=== PATIENT | male | born 1990 | race African-American/Black ===

== ENCOUNTER 2018-03-01 14:41 | Emergency (ER) | payer OTHER ==
[2018-03-01] MEDS ORDERED: IBUPROFEN 600 MG TAB PO STA (14:49)
[2018-03-01] MEDS ORDERED: ACETAMINOPHEN TAB 500 MG TAB PO STA (14:49)
--- NOTE | 2018-03-01 14:52 | ED ---
General Adult HPI - General Chief complaint: Upper Respiratory Infection Stated complaint: dizziness/achy Time Seen by Provider: 03/01/18 14:42 Source: patient, RN notes reviewed Mode of arrival: ambulatory Limitations: no limitations - History of Present Illness Initial comments: This is a 28-year-old male who presents emergency Department complaining of body aches all over for 2 days. Patient states he believes he has a fever. Patient states she also had a cough but he denies any shortness of breath. Patient also denies any sputum production. Patient denies a sore throat. Patient denies any ear pain. Patient has any nausea vomiting diarrhea. Patient denies any chest pain or abdomen pain. Patient is a smoker. - Related Data Home Medications Medication Instructions Recorded Confirmed No Known Home Medications 03/01/18 03/01/18 Allergies Allergy/AdvReac Type Severity Reaction Status Date / Time Penicillins Allergy Unknown Verified 03/01/18 15:28 Review of Systems ROS Statement: Those systems with pertinent positive or pertinent negative responses have been documented in the HPI. ROS Other: All systems not noted in ROS Statement are negative. Past Medical History Past Medical History: No Reported History History of Any Multi-Drug Resistant Organisms: None Reported Past Surgical History: Hernia Repair Past Psychological History: No Psychological Hx Reported Smoking Status: Current every day smoker Past Alcohol Use History: Occasional Past Drug Use History: Marijuana General Exam - General Exam Comments Initial Comments: GENERAL: Patient is well-developed and well-nourished. Patient is nontoxic and well- hydrated and is in mild distress. ENT: Neck is soft and supple. No significant lymphadenopathy is noted. Oropharynx is clear. Moist mucous membranes. Neck has full range of motion without eliciting any pain. EYES: The sclera were anicteric and conjunctiva were pink and moist. Extraocular movements were intact and pupils were equal round and reactive to light. Eyelids were unremarkable. PULMONARY: Unlabored respirations. Good breath sounds bilaterally. No audible rales rhonchi or wheezing was noted. CARDIOVASCULAR: There is a regular rate and rhythm without any murmurs gallops or rubs. ABDOMEN: Soft and nontender with normal bowel sounds. SKIN: Skin is clear with no lesions or rashes and otherwise unremarkable. NEUROLOGIC: Patient is alert and oriented x3. Cranial nerves II through XII are grossly intact. Motor and sensory are also intact. Normal speech, volume and content. Symmetrical smile. MUSCULOSKELETAL: Normal extremities with adequate strength and full range of motion. LYMPHATICS: No significant lymphadenopathy is noted PSYCHIATRIC: Normal psychiatric evaluation. Limitations: no limitations Course Vital Signs 03/01/18 03/01/18 03/01/18 14:42 14:49 15:05 Temperature 101.4 F H 103.4 F H 100.3 F H Pulse Rate 111 H Respiratory 20 Rate Blood Pressure 137/91 O2 Sat by Pulse 100 Oximetry 03/01/18 15:12 Temperature Pulse Rate Respiratory 20 Rate Blood Pressure O2 Sat by Pulse Oximetry Medical Decision Making - Medical Decision Making Chest x-ray shows no acute abnormality. Influenza was negative. Patient received Motrin and Tylenol in the emergency department after that he was feeling considerably better. - Lab Data Lab Results 03/01/18 Range/Units 15:03 Influenza Type A RNA Not Detected (Not Detectd) Influenza Type B (PCR) Not Detected (Not Detectd) Disposition Clinical Impression: Viral infection Disposition: HOME SELF-CARE Condition: Good Instructions: Viral Syndrome (ED) Is patient prescribed a controlled substance at d/c from ED?: No Referrals: None,Stated [Primary Care Provider] - 1-2 days Time of Disposition: 16:51
--- NOTE | 2018-03-01 16:48 | XR ---
EXAMINATION TYPE: XR chest 2V DATE OF EXAM: 03/01/2018 COMPARISON: NONE HISTORY: Difficulty breathing, fever and bodyaches TECHNIQUE: Frontal and lateral views of the chest are obtained. FINDINGS: There is no focal air space opacity, pleural effusion, or pneumothorax seen. The cardiac silhouette size is within normal limits. There is a mild spinal curvature. The osseous structures ar e intact. IMPRESSION: No acute cardiopulmonary process.
[2018-03-01 17:07] VITALS: BP 141/88; PULSE 79; RESP 18; TEMP 100.9
== END 2018-03-01 17:07 | disposition home or self-care (01) ==
LOC: EDSEX → EC 14:41 → MERGE 14:41 → EC 17:07
DX: B34.9 Viral infection, unspecified (principal); F17.200 Nicotine dependence, unspecified, uncomplicated; Z88.0 Allergy status to penicillin
CPT/HCPCS: 71046; 87502; 99284

== ENCOUNTER 2018-04-18 04:57 | Emergency (ER) | payer OTHER ==
[2018-04-18 05:14] VITALS: RESP 18
[2018-04-18] MEDS ORDERED: SODIUM CHLORIDE 0.9% 1,000 ML IV ONE (05:25)
[2018-04-18] MEDS ORDERED: MORPHINE SULFATE 4 MG/ML SYRINGE IVP STA (05:25)
--- NOTE | 2018-04-18 05:27 | ED ---
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 Patient reports she has a history of a right-sided inguinal hernia which required surgical repair when he lived in [place]. Patient reports that today he was lifting heavy bags of laundry, a bat got stuck and he states that he had put his left leg up to give him more worse pulling backwards on a bag. He reports that he believes he pulled his groin and as been experiencing left- sided groin pain since that time. He describes it as a pressure that radiates from his testicles into his abdomen. He reports identical to previous hernia. He reports that this is been persistent for about half an hour to an hour he has noticed a bulge in his pubic area of similar to previous hernia surgery came to the ER for evaluation. Advised had a noticed any hernia like symptoms prior to this event. - Related Data Home Medications Medication Instructions Recorded Confirmed Ibuprofen [Motrin Ib] 400 mg PO Q6H PRN 04/18/18 04/18/18 Allergies Allergy/AdvReac Type Severity Reaction Status Date / Time Penicillins Allergy Unknown Verified 04/18/18 07:23 Review of Systems ROS Statement: Those systems with pertinent positive or pertinent negative responses have been documented in the HPI. ROS Other: All systems not noted in ROS Statement are negative. Past Medical History Past Medical History: No Reported History History of Any Multi-Drug Resistant Organisms: None Reported Past Surgical History: Hernia Repair Past Psychological History: No Psychological Hx Reported Smoking Status: Current every day smoker Past Alcohol Use History: Occasional Past Drug Use History: Marijuana General Exam - General Exam Comments Initial Comments: Physical Exam GENERAL: Patient is well-developed and well-nourished. Patient is nontoxic and well- hydrated and is in no distress. HENT: Normocephalic, Atraumatic. EYES: PERRL, EOMI PULMONARY: Unlabored respirations. No audible rales rhonchi or wheezing was noted. CARDIOVASCULAR: There is a regular rate and rhythm without any murmurs gallops or rubs. ABDOMEN: Soft and nontender with normal bowel sounds. SKIN: Skin is clear with no lesions or rashes and otherwise unremarkable. : Circumcised No Testicular swelling Swelling of the left groin, no definitive inguinal hernia NEUROLOGIC: Patient is alert and oriented x3. Moving all extremities spontaneously MUSCULOSKELETAL: Normal extremities with adequate strength and full range of motion. No lower extremity swelling or edema. No calf tenderness. PSYCHIATRIC: Normal psychiatric evaluation. Limitations: no limitations Limitations: no limitations Course Vital Signs 04/18/18 05:09 Temperature 98.0 F Pulse Rate 64 Respiratory 18 Rate Blood Pressure 149/92 O2 Sat by Pulse 100 Oximetry Medical Decision Making - Medical Decision Making The patient was seen and evaluated, history is obtained from the patient The and imaging were ordered Labs unremarkable CT with no acute findings - I suspect patient's pain and swelling are secondary to a muscle sprain or strain, these results were discussed with patient who expresses relief that there is no hernia identified. Agrees with plan for rest , ice, anti-inflammatories. I will refer the patient to a surgeon for outpatient evaluation if he does have persistent symptoms. Patient is agreeable to this. Patient be provided a work note so that he can take the next 24 hours to rest. All questions pertaining care were answered best my ability return parameters were discussed patient was discharged home in stable condition. - Lab Data Result diagrams: 04/18/18 05:36 04/18/18 05:36 Lab Results 04/18/18 04/18/18 04/18/18 Range/Units 05:36 05:36 05:36 WBC 3.8 (3.8-10.6) k/uL RBC 5.13 (4.30-5.90) m/uL Hgb 15.2 (13.0-17.5) gm/dL Hct 45.4 (39.0-53.0) % MCV 88.4 (80.0-100.0) fL MCH 29.6 (25.0-35.0) pg MCHC 33.5 (31.0-37.0) g/dL RDW 13.2 (11.5-15.5) % Plt Count 301 (150-450) k/uL Neutrophils % 48 % Lymphocytes % 38 % Monocytes % 6 % Eosinophils % 3 % Basophils % 1 % Neutrophils # 1.8 (1.3-7.7) k/uL Lymphocytes # 1.5 (1.0-4.8) k/uL Monocytes # 0.2 (0-1.0) k/uL Eosinophils # 0.1 (0-0.7) k/uL Basophils # 0.1 (0-0.2) k/uL Sodium 137 (137-145) mmol/L Potassium 5.2 H (3.5-5.1) mmol/L Chloride 106 (98-107) mmol/L Carbon Dioxide 25 (22-30) mmol/L Anion Gap 6 mmol/L BUN 14 (9-20) mg/dL Creatinine 0.98 (0.66-1.25) mg/dL Est GFR (CKD-EPI)AfAm >90 (>60 ml/min/1.73 sqM) Est GFR (CKD-EPI)NonAf >90 (>60 ml/min/1.73 sqM) Glucose 97 (74-99) mg/dL Plasma Lactic Acid Carl 1.4 (0.7-2.0) mmol/L Calcium 9.2 (8.4-10.2) mg/dL Total Bilirubin 0.4 (0.2-1.3) mg/dL AST 28 (17-59) U/L ALT 26 (21-72) U/L Alkaline Phosphatase 44 (38-126) U/L Total Protein 7.0 (6.3-8.2) g/dL Albumin 3.9 (3.5-5.0) g/dL Disposition Clinical Impression: Strain of left inguinal muscle Disposition: HOME SELF-CARE Condition: Good Instructions: Muscle Strain (ED), Groin Strain (ED) Is patient prescribed a controlled substance at d/c from ED?: No Referrals: None,Stated [Primary Care Provider] - 1-2 days Sreekanth Ramon MD [STAFF PHYSICIAN] - 1-2 days
[2018-04-18 05:54] LABS: Basophils # (A) 0.1 k/uL (0-0.2); Basophils % (A) 1 %; Eosinophils # (A) 0.1 k/uL (0-0.7); Eosinophils % (A) 3 %; HCT 45.4 % (39.0-53.0); HGB 15.2 gm/dL (13.0-17.5); Lymphocytes # (A) 1.5 k/uL (1.0-4.8); Lymphocytes % (A) 38 %; MCH 29.6 pg (25.0-35.0); MCHC 33.5 g/dL (31.0-37.0); MCV 88.4 fL (80.0-100.0); Mean Platelet Volume 6.9; Monocytes # (A) 0.2 k/uL (0-1.0); Monocytes % (A) 6 %; Neutrophils # (A) 1.8 k/uL (1.3-7.7); Neutrophils % (A) 48 %; Platelet Count 301 k/uL (150-450); RBC 5.13 m/uL (4.30-5.90); RDW 13.2 % (11.5-15.5); WBC 3.8 k/uL (3.8-10.6)
[2018-04-18 06:04] LABS: ALT 26 U/L (21-72); AST 28 U/L (17-59); Albumin 3.9 g/dL (3.5-5.0); Alkaline Phosphatase 44 U/L (38-126); Anion Gap 6 mmol/L; Blood Urea Nitrogen 14 mg/dL (9-20); Calcium 9.2 mg/dL (8.4-10.2); Carbon Dioxide 25 mmol/L (22-30); Chloride 106 mmol/L (98-107); Glucose 97 mg/dL (74-99); Potassium 5.2 mmol/L (3.5-5.1); Sodium 137 mmol/L (137-145); Total Bilirubin 0.4 mg/dL (0.2-1.3)
--- NOTE | 2018-04-18 06:53 | CT ---
EXAMINATION TYPE: CT abdomen pelvis w con DATE OF EXAM: 04/18/2018 COMPARISON: None HISTORY: Lt inguinal hernia left groin pain. Previous hernia repair. CT DLP: 548.8 mGycm Automated exposure control for dose reduction was used. TECHNIQUE: Helical acquisition of images was performed from the lung bases through the pelvis. CONTRAST: Performed without Oral Contrast and with IV Contrast, patient injected with 100 mL of Isovue 300. FINDINGS: Lung bases are clear. There is no pleural effusion. Heart size is normal. There is no pericardial eff usion. Liver shows no focal defect. Gallbladder appears normal. Bile ducts are not dilated. Spleen and pancr eas appear normal. Stomach appears normal. There is no adrenal mass. Kidneys show satisfactory contrast opacification. T here is no hydronephrosis. There is no retroperitoneal adenopathy. Ureters are not dilated. There is normal contrast excretion of the kidneys. Bladder distends smoothly. There is no free fluid in the pelvis. There is no inguinal hernia. There i s no intestinal wall thickening. There are no dilated loops. Appendix is not seen. There is no sign o f appendicitis. I see no intestinal wall thickening. There is no evidence of a bowel obstruction. The re is no mesenteric edema. Lumbar vertebra have normal spacing and alignment. Posterior elements are intact. Bony pelvis appears intact. IMPRESSION: NEGATIVE CT SCAN ABDOMEN AND PELVIS. NO EVIDENCE OF INGUINAL HERNIA. I DO NOT SEE A CAUSE FOR ABDOMIN AL PAIN.
[2018-04-18] MEDS ORDERED: KETOROLAC 30 MG/ML 1 ML VIAL IVP STA (06:56)
[2018-04-18 07:25] VITALS: BP 135/62; PULSE 54; TEMP 97.6
== END 2018-04-18 07:23 | disposition home or self-care (01) ==
LOC: EC 04:57
DX: S39.011A Strain of muscle, fascia and tendon of abdomen, initial encounter (principal); F17.200 Nicotine dependence, unspecified, uncomplicated; Z87.19 Personal history of other diseases of the digestive system; Z98.890 Other specified postprocedural states; Z88.0 Allergy status to penicillin; X50.0XXA Overexertion from strenuous movement or load, initial encounter; Y92.69 Other specified industrial and construction area as the place of occurrence of the external cause; Y99.0 Civilian activity done for income or pay
CPT/HCPCS: 36415; 80053; 83605; 85025; 74177; 99284; 96374; 96361 ×2; J2270; Q9967

== ENCOUNTER 2019-05-07 11:14 | Emergency (ER) | payer OTHER ==
[2019-05-07 11:31] VITALS: BP 149/93; PULSE 98; RESP 18
[2019-05-07] MEDS ORDERED: IBUPROFEN 600 MG TAB PO STA (12:14)
[2019-05-07] MEDS ORDERED: ACETAMINOPHEN TAB 325 MG TAB PO STA (12:14)
--- NOTE | 2019-05-07 12:19 | ED ---
Nausea/Vomiting/Diarrhea HPI - General Chief complaint: Nausea/Vomiting/Diarrhea Stated complaint: fever/body aches Time Seen by Provider: 05/07/19 12:01 Source: patient, RN notes reviewed Mode of arrival: ambulatory Limitations: no limitations - History of Present Illness Initial comments: 29-year-old male presents emergency Department chief complaint of fever bodyaches cough congestion. Patient states that has worsened over the last 25 states she's had a cough last 2 months states he is a daily smoker no history of asthma or COPD. Patient denies any sick contacts denies any ear pain, sore throat. He states that he aches in his muscles and joints. Denies any neck stiffness. - Related Data Home Medications Medication Instructions Recorded Confirmed Ibuprofen [Motrin Ib] 400 mg PO Q6H PRN 04/18/18 04/18/18 Previous Rx's Medication Instructions Recorded Azithromycin [Zithromax Z-pack] 0 mg PO DIRECTED #1 pack 05/07/19 Allergies Allergy/AdvReac Type Severity Reaction Status Date / Time Penicillins Allergy Unknown Verified 04/18/18 07:23 Review of Systems ROS Statement: Those systems with pertinent positive or pertinent negative responses have been documented in the HPI. ROS Other: All systems not noted in ROS Statement are negative. Past Medical History Past Medical History: No Reported History History of Any Multi-Drug Resistant Organisms: None Reported Past Surgical History: Hernia Repair Past Psychological History: No Psychological Hx Reported Smoking Status: Current every day smoker Past Alcohol Use History: Occasional Past Drug Use History: Marijuana General Exam Limitations: no limitations General appearance: alert, in no apparent distress Head exam: Present: atraumatic, normocephalic, normal inspection Eye exam: Present: normal appearance, PERRL, EOMI. Absent: scleral icterus, conjunctival injection, periorbital swelling ENT exam: Present: normal exam, normal oropharynx, mucous membranes moist, TM's normal bilaterally Neck exam: Present: normal inspection. Absent: tenderness, meningismus, lymphadenopathy Respiratory exam: Present: normal lung sounds bilaterally. Absent: respiratory distress, wheezes, rales, rhonchi, stridor Cardiovascular Exam: Present: regular rate, normal rhythm, normal heart sounds. Absent: systolic murmur, diastolic murmur, rubs, gallop, clicks GI/Abdominal exam: Present: soft, normal bowel sounds. Absent: distended, tenderness, guarding, rebound, rigid Course Vital Signs 05/07/19 05/07/19 11:29 12:42 Temperature 99.1 F Pulse Rate 98 Respiratory 18 18 Rate Blood Pressure 149/93 O2 Sat by Pulse 100 Oximetry Medical Decision Making - Medical Decision Making Patient presented for fever or myalgias. Influenza is negative, chest x-rays unremarkable that he is productive cough with fever. Patient provided antipyretics in the emergency department. Patient may have underlying viral illness to retrieve for acute bronchitis return parameters discussed.I counseled the patient for smoking cessation for greater than 3 minutes - Lab Data Lab Results 05/07/19 Range/Units 12:50 Influenza Type A RNA Not Detected (Not Detectd) Influenza Type B (PCR) Not Detected (Not Detectd) Disposition Clinical Impression: Myalgia, Fever, Acute bronchitis Disposition: HOME SELF-CARE Condition: Stable Instructions (If sedation given, give patient instructions): Musculoskeletal Pain (ED), Acute Bronchitis (ED) Additional Instructions: Please return to the Emergency Department if symptoms worsen or any other concerns. Prescriptions: Azithromycin [Zithromax Z-pack] 0 mg PO DIRECTED #1 pack Is patient prescribed a controlled substance at d/c from ED?: No Referrals: None,Stated [Primary Care Provider] - 1-2 days Time of Disposition: 13:23
--- NOTE | 2019-05-07 12:30 | XR ---
EXAMINATION TYPE: XR chest 2V DATE OF EXAM: 05/07/2019 COMPARISON: 03/01/2018 INDICATION: Fever back pain TECHNIQUE: Frontal and lateral views of the chest are obtained. FINDINGS: The heart size is normal. The pulmonary vasculature is normal. The lungs are clear. IMPRESSION: 1. No acute pulmonary process.
[2019-05-07 13:30] VITALS: TEMP 100.7
== END 2019-05-07 13:30 | disposition home or self-care (01) ==
LOC: EC 11:14
DX: J20.9 Acute bronchitis, unspecified (principal); M79.10 Myalgia, unspecified site; F17.200 Nicotine dependence, unspecified, uncomplicated; Z71.6 Tobacco abuse counseling; Z88.0 Allergy status to penicillin
CPT/HCPCS: 71046; 87502; 99283

== ENCOUNTER 2021-09-08 06:28 | Emergency (ER) | payer OTHER ==
[2021-09-08 06:33] VITALS: BP 164/95; PULSE 93; RESP 18; TEMP 98.9
[2021-09-08] MEDS ORDERED: ACETAMINOPHEN TAB 325 MG TAB PO STA (07:10)
[2021-09-08] MEDS ORDERED: ONDANSETRON ODT 4 MG TAB PO STA (07:10)
[2021-09-08] MEDS ORDERED: IBUPROFEN 600 MG TAB PO STA (07:10)
--- NOTE | 2021-09-08 07:14 | ED ---
URI HPI - General Chief Complaint: Upper Respiratory Infection Stated Complaint: Body aches Time Seen by Provider: 09/08/21 07:00 Source: patient, RN notes reviewed, old records reviewed Mode of arrival: ambulatory Limitations: no limitations - History of Present Illness Initial Comments: Patient is a healthy 31-year-old male presenting to the emergency Department with complaints of a sore throat, body aches, chills, nausea that started 1-2 days ago. He states he had contact with his cousin who just tested positive for Covid. He is on a vaccinated. He denies any chest pains or shortness of breath. He states he does have a mild cough as well. He has no history of asthma, takes no medications. He did not take anything for his body aches, "I don't like to take medicines." Patient denies any vomiting, no abdominal pain, no diarrhea. He has no further complaints. - Related Data Home Medications Medication Instructions Recorded Confirmed Ibuprofen [Motrin Ib] 400 mg PO Q6H PRN 04/18/18 04/18/18 Previous Rx's Medication Instructions Recorded Azithromycin [Zithromax Z-pack (6 0 mg PO DIRECTED #1 pack 05/07/19 tabs)] Allergies Allergy/AdvReac Type Severity Reaction Status Date / Time Penicillins Allergy Unknown Verified 09/08/21 06:33 Review of Systems ROS Statement: Those systems with pertinent positive or pertinent negative responses have been documented in the HPI. ROS Other: All systems not noted in ROS Statement are negative. Past Medical History Past Medical History: No Reported History History of Any Multi-Drug Resistant Organisms: None Reported Past Surgical History: Hernia Repair Past Psychological History: No Psychological Hx Reported Smoking Status: Current every day smoker Past Alcohol Use History: Occasional Past Drug Use History: Marijuana General Exam - General Exam Comments Initial Comments: GENERAL: Patient is well-developed and well-nourished. Patient is nontoxic and in no acute distress. HEAD: Atraumatic, normocephalic. EYES: Pupils equal round and reactive to light, extraocular movements intact, sclera anicteric, conjunctiva are normal. Eyelids were unremarkable. ENT: TMs normal, nares patent, oropharynx clear without exudates. Moist mucous membranes. NECK: Normal range of motion, supple without lymphadenopathy or JVD. LUNGS: Unlabored respirations. Breath sounds clear to auscultation bilaterally and equal. No wheezes rales or rhonchi. HEART: Regular rate and rhythm without murmurs, rubs or gallops. ABDOMEN: Soft, nontender, normoactive bowel sounds. No guarding, no rebound. No masses appreciated. MUSCULOSKELETAL: Normal extremities with adequate strength and normal range of motion, no pitting or edema. No clubbing or cyanosis. NEUROLOGICAL: Patient is alert and oriented x 3. Normal speech, normal gait. PSYCH: Normal mood, normal affect. SKIN: Warm, Dry, normal turgor, no rashes or lesions noted. Limitations: no limitations Course Vital Signs 09/08/21 06:30 Temperature 98.9 F Pulse Rate 93 Respiratory 18 Rate Blood Pressure 164/95 O2 Sat by Pulse 100 Oximetry Medical Decision Making - Medical Decision Making Patient is a 31-year-old male here with viral type symptoms started 1-2 days ago. He has positive contact with his cousin who tested positive for Covid. He is unvaccinated. His vitals are stable, afebrile. His exam is unremarkable. Covid swab is positive. Patient was given Tylenol, Motrin, Zofran for his symptoms. Patient can continue with this medication to treat his symptoms, we'll give him Zofran for any additional nausea. Encouraged lots of fluids. He is agreeable. Work note was given. Patient is stable for discharge. Return parameters were discussed. - Lab Data Lab Results 09/08/21 Range/Units 06:36 Coronavirus (PCR) Detected A (Not Detectd) Disposition Clinical Impression: COVID-19 Disposition: HOME SELF-CARE Condition: Stable Instructions (If sedation given, give patient instructions): COVID-19 (Coronavirus Disease 2019) (ED) Additional Instructions: Please return to the Emergency Department if symptoms worsen or any other concerns. Recommend alternating between Tylenol and Motrin for body aches. Drink lots of fluids. Quarantine for 5 days as discussed. Is patient prescribed a controlled substance at d/c from ED?: No Referrals: None,Stated [Primary Care Provider] - 1-2 days Time of Disposition: 08:13
== END 2021-09-08 08:22 | disposition home or self-care (01) ==
LOC: EC 06:28
DX: U07.1 COVID-19 (principal); F17.200 Nicotine dependence, unspecified, uncomplicated; F12.90 Cannabis use, unspecified, uncomplicated
CPT/HCPCS: 87635; 99283

== ENCOUNTER 2022-01-25 07:34 | Emergency (ER) | payer OTHER ==
[2022-01-25 07:38] VITALS: BP 145/96; PULSE 78; RESP 14; TEMP 98.1
--- NOTE | 2022-01-25 08:25 | XR ---
EXAMINATION TYPE: XR knee complete LT DATE OF EXAM: 01/25/2022 CLINICAL HISTORY: pain TECHNIQUE: Three views of the left knee are obtained. COMPARISON: None. FINDINGS: There is no acute fracture/dislocation. The tri-compartment joint spaces appear within no rmal limits. The overlying soft tissue appears unremarkable. IMPRESSION: There is no acute fracture or dislocation ICD 10 NO FRACTURE, INITIAL EVALUATION
--- NOTE | 2022-01-25 08:29 | ED ---
Lower Extremity Injury HPI - General Chief Complaint: Extremity Injury, Lower Stated Complaint: Knee pain/Injury Time Seen by Provider: 01/25/22 07:38 Source: patient, RN notes reviewed Mode of arrival: ambulatory Limitations: no limitations - History of Present Illness Initial Comments: This a 31-year-old male presents emergency Department chief complaint of left knee pain. Patient states that he is playing football yesterday does not have an known injury but states shortly after he complained he developed left knee pain states a mild swelling to her knee brace AND help. No paresthesias no prior surgeries. Patient states that there is no clicking or popping. He has pain on the anterior knee. No pain above or below. - Related Data Home Medications Medication Instructions Recorded Confirmed Ibuprofen [Motrin Ib] 400 mg PO Q6H PRN 04/18/18 04/18/18 Previous Rx's Medication Instructions Recorded Azithromycin [Zithromax Z-pack (6 0 mg PO DIRECTED #1 pack 05/07/19 tabs)] Ibuprofen [Motrin] 600 mg PO Q8HR PRN #20 tab 01/25/22 Allergies Allergy/AdvReac Type Severity Reaction Status Date / Time Penicillins Allergy Unknown Verified 01/25/22 07:38 Review of Systems ROS Statement: Those systems with pertinent positive or pertinent negative responses have been documented in the HPI. ROS Other: All systems not noted in ROS Statement are negative. Past Medical History Past Medical History: No Reported History History of Any Multi-Drug Resistant Organisms: None Reported Past Surgical History: Hernia Repair Past Psychological History: No Psychological Hx Reported Smoking Status: Current every day smoker Past Alcohol Use History: Occasional Past Drug Use History: Marijuana General Exam Limitations: no limitations General appearance: alert, in no apparent distress Head exam: Present: atraumatic, normocephalic, normal inspection Respiratory exam: Present: normal lung sounds bilaterally. Absent: respiratory distress, wheezes, rales, rhonchi, stridor Cardiovascular Exam: Present: regular rate, normal rhythm, normal heart sounds. Absent: systolic murmur, diastolic murmur, rubs, gallop, clicks Extremities exam: Present: other (Left knee in no obvious deformity, no localize mediolateral tenderness there is pain with knee flexion, neurovascular intact, no laxity noted) Course Vital Signs 01/25/22 07:35 Temperature 98.1 F Pulse Rate 78 Respiratory 14 Rate Blood Pressure 145/96 O2 Sat by Pulse 98 Oximetry Medical Decision Making - Medical Decision Making 31-year-old male presented for knee pain. X-ray was obtained there is no acute fracture or acute abnormality. Symptoms more consistent with a knee sprain. Patient may have small effusion. Patient will follow-up with orthopedics for MRI he does have a knee brace will continue uses. Return parameters were started. Disposition Clinical Impression: Left knee sprain Disposition: HOME SELF-CARE Condition: Stable Instructions (If sedation given, give patient instructions): Knee Sprain (ED) Additional Instructions: Please return to the Emergency Department if symptoms worsen or any other concerns. Prescriptions: Ibuprofen [Motrin] 600 mg PO Q8HR PRN #20 tab PRN Reason: Pain Is patient prescribed a controlled substance at d/c from ED?: No Referrals: None,Stated [Primary Care Provider] - 1-2 days Reymundo Wood MD [Medical Doctor] - 1-2 days Time of Disposition: 08:29
== END 2022-01-25 08:35 | disposition home or self-care (01) ==
LOC: EC 07:34
DX: S83.92XA Sprain of unspecified site of left knee, initial encounter (principal); F17.200 Nicotine dependence, unspecified, uncomplicated; Z72.89 Other problems related to lifestyle; F12.90 Cannabis use, unspecified, uncomplicated; Z88.0 Allergy status to penicillin
CPT/HCPCS: 99283